=== PATIENT | male | born 1995 | race Caucasian/White ===

== ENCOUNTER 2017-02-24 22:58 | Emergency (ER) | payer OTHER ==
[~2017-02-24] VITALS: Ht 170.2 cm; Wt 61.4 kg
[~2017-02-24 22:58] MED LIST: DOXYCYCLINE 10100 MG PO
[2017-02-24 23:08] VITALS: BP 137/87; TEMP 99.3
[2017-02-24] MEDS ORDERED: CLEOCIN HC150 MG/CAP PO (23:13)
[2017-02-25 01:00] VITALS: PULSE 85
== END 2017-02-25 01:00 | disposition home or self-care (01) ==
LOC: COL.ER 22:58
DX: L05.91 Pilonidal cyst without abscess (principal)